=== PATIENT | male | born 1960 | race Two or more races ===

== ENCOUNTER 2022-05-08 08:25 | Day surgery (SDC) | payer OTHER | END 2022-05-08 15:35 | disposition home or self-care (01) | LOC: AMB-ENDOS 08:25 | PROVIDERS: ATTEND Colon & Rectal Surgery | DX: D12.4 Benign neoplasm of descending colon (principal); D12.5 Benign neoplasm of sigmoid colon; D12.3 Benign neoplasm of transverse colon; Z20.822 Contact with and (suspected) exposure to COVID-19; K64.4 Residual hemorrhoidal skin tags ==

== ENCOUNTER 2025-07-25 07:00 | Day surgery (SDC) | payer OTHER ==
[2025-07-25] MEDS ORDERED: FLUMAZENIL 0.5 MG/5 ML ML IV STA (09:03)
[2025-07-25] MEDS ORDERED: NALOXONE HCL 0.4 MG/ML AMPUL IV STA (09:03)
[2025-07-25] MEDS ORDERED: DIPHENHYDRAMINE HCL 50 MG/ML VIAL 1ML IV ONE (09:15)
[2025-07-25] MEDS ORDERED: MIDAZOLAM HCL 2 MG/2 ML VIAL IV ONE (09:15)
[2025-07-25] MEDS ORDERED: ONDANSETRON HCL 2 MG/ML VIAL IV ONE (09:15)
[2025-07-25] MEDS ORDERED: fentaNYL CITRATE 50 MCG/ML AMPUL IV PUSH ONE (09:15)
== END 2025-07-25 10:35 | disposition home or self-care (01) ==
LOC: AMB-ENDOS 07:00
PROVIDERS: ATTEND Colon & Rectal Surgery
DX: D12.5 Benign neoplasm of sigmoid colon (principal); K63.5 Polyp of colon; K57.30 Diverticulosis of large intestine without perforation or abscess without bleeding